=== PATIENT | male | born 1980 | race African-American/Black ===

== ENCOUNTER → 2019-09-03 | Emergency (ER) | payer OTHER ==
[~2019-09-03] VITALS: Ht 180.3 cm; Wt 130.6 kg
[~2019-09-03] MED LIST: ACETAMINOPHEN-1 EAC1 ORAL; IBU800 MG PO
[2019-09-03 12:02] VITALS: BP 164/100
--- NOTE | 2019-09-03 13:00 | NUR ---
ED Nurse Note: Pt returned from x-ray.
--- NOTE | 2019-09-03 13:43 | Emergency Room Report ---
History of Present Illness General Chief Complaint: Lower Extremity Injury Source: Patient Present Illness HPI 39-year-old male with history of left hip replacement, here complaining of right knee pain and right ankle pain after falling off a porch today. Patient reports that he landed on her right knee. Rating the pain 10 out of 10 without radiation. Denying tingling numbness. Has not taken medication for symptom relief. Patient is tender to palpation right proximal fibula and right distal tibia. Denies all other injuries, denies head injury, loss of consciousness, dizziness, chest pain, shortness of breath, palpitation, and other associated symptoms. Allergies: Coded Allergies: No Known Allergies (Unverified , 09/03/19) Patient History Past Medical History: see triage record Past Surgical History: unable to obtain Pertinent Family History: none Immunizations: UTD Reviewed Nursing Documentation: PMH: Agreed; PSxH: Agreed Review of Systems All Other Systems: negative except mentioned in HPI Physical Exam Vital Signs Date Time Temp Pulse Resp B/P (MAP) Pulse Ox O2 Delivery O2 Flow Rate FiO2 09/03/19 12:02 98.2 83 16 164/100 (121) 96 Room Air Sp02 EP Interpretation: reviewed, normal General Appearance: no apparent distress, alert, GCS 15, non-toxic Head: normocephalic, atraumatic Eyes: bilateral eye normal inspection, bilateral eye PERRL ENT: hearing grossly normal, normal pharynx, no angioedema, normal voice Neck: full range of motion, supple, supple/symm/no masses Respiratory: chest non-tender, lungs clear, normal breath sounds, no rhonchi, no respiratory distress, no retraction, speaking full sentences Cardiovascular #1: regular rate, rhythm, no edema, no gallop, no murmur Cardiovascular #2: 2+ dorsalis pedis (R), 2+ dorsalis pedis (L) Gastrointestinal: normal bowel sounds, non tender, soft, non-distended, no guarding, no rebound Musculoskeletal: back normal, no calf tenderness, pelvis stable, tender - Right proximal fibula, right distal tibia Neurologic: alert, oriented x3, responsive, motor strength/tone normal, sensory intact, speech normal Psychiatric: judgement/insight normal, memory normal, mood/affect normal, no suicidal/homicidal ideation Skin: no rash Lymphatic: no adenopathy Procedures Splinting Splinting : Consent: Verbal Location: right knee to ankle Splint: posterior long Pre-Proc Neuro Vasc Exam: normal Post-Proc Neuro Vasc Exam: normal Patient Tolerated: Well Complications: None Progress walker was provided as pt cant walk with crutches due to left hip replacement hx Medical Decision Making PA Attestation All my diagnosis and treatment plans were reviewed ad discussed with my supervising physician Dr. Guillen Diagnostic Impression: Primary Impression: Fracture of right proximal fibula Additional Impression: Ankle fracture, right ER Course 39-year-old male with history of left hip replacement, here complaining of right knee pain and right ankle pain after falling off a porch today. Patient reports that he landed on her right knee. Rating the pain 10 out of 10 without radiation. Denying tingling numbness. Has not taken medication for symptom relief. Patient is tender to palpation right proximal fibula and right distal tibia. Denies all other injuries, denies head injury, loss of consciousness, dizziness, chest pain, shortness of breath, palpitation, and other associated symptoms. Ddx considered but are not limited to: Knee sprain, strain, fracture, contusion , meniscus tear injury, ankle sprain versus fracture versus strain Vital signs: are WNL, pt. is afebrile H&PE are most consistent with: Fracture of right proximal fibula, ankle fracture right ORDERS: Knee x-ray, ankle x-ray, Tylenol 3, ibuprofen ER intervention: Posterior long-leg splint, walker was provided patient with no walker or crutches due to having history of left hip replacement and cannot apply pressure to the left side. DISCHARGE: At this time pt. is stable for d/c to home. Will provide printed patient care instructions, and any necessary prescriptions. Care plan and follow up instructions have been discussed with the patient prior to discharge. At this time patient does not have calf tenderness however I educated him on return to the emergency room if tightness in the affected side, or chest pain, or swelling in the leg. Also follow-up with hearing instrument specialist this was possible. Patient is obese and immobile and high risk for deep vein thrombosis. However at this time it is not indicated to have ultrasound done as the fracture just occurred this morning and the fracture parts are being placed in a splint. Other X-Ray Diagnostic Results Other X-Ray Diagnostic Results #1: X-Ray ordered: Right knee # of Views/Limited Vs Complete: 3 View Indication: Pain EP Interpretation: Yes PA Xray: Interpretation reviewed, by supervising MD, and agrees with findings. Interpretation: no dislocation, other - Right proximal fibular fracture Impression: Other - Right proximal fibular fracture Electronically Signed by: Deon Rai PA-C Other X-Ray Diagnostic Results #2: X-Ray ordered: Right ankle # of Views/Limited Vs Complete: 3 View Indication: Pain EP Interpretation: Yes PA Xray: Interpretation reviewed, by supervising MD, and agrees with findings. Interpretation: no dislocation, other - Right distal tibial fracture Impression: Other - Right distal tibial fracture Electronically Signed by: Deon Rai PA-C Last Vital Signs Date Time Temp Pulse Resp B/P (MAP) Pulse Ox O2 Delivery O2 Flow Rate FiO2 09/03/19 12:02 98.2 83 16 164/100 (121) 96 Room Air Disposition: HOME, SELF-CARE Condition: Stable Scripts Acetaminophen With Codeine (T#3) (TYLENOL #3 TAB*) Y Tab 1 TAB ORAL Q8H PRN for For Pain, #10 TAB Prov: Deon Bob 09/03/19 Ibuprofen (Ibu) 800 Mg Tablet 800 MG PO TID, #30 TAB Prov: Deon Bob 09/03/19 Referrals: [facility],REFERRING (PCP) Patient Instructions: Ankle Fracture, [id number], Fibular Fracture With Rehab -SportsMed Additional Instructions: Follow-up with hearing instrument specialist keep splint on, elevate affected area avoid strenuous physical activity and apply pressure to the fracture area. If worsening symptoms return to the emergency room Deon Bob Sep 03, 2019 13:43
--- NOTE | 2019-09-03 15:37 | NUR ---
ED Nurse Note: Waiting for central suppy to restock splint.
--- NOTE | 2019-09-03 15:39 | Diagnostic Imaging Report ---
Indication: Pain, trauma, status post slip and fall Technique: 3 views of the right ankle Comparison: none Findings: There is widening of the medial ankle mortise, indicating lateral subluxation of the talus. Addition, there is what appears to be a small osteochondral or avulsion fracture of the distal medial tibia. No fibular or other fracture demonstrated. Impression: Evidence of medial ligamentous injury with associated avulsion or osteochondral fracture This agrees with the preliminary interpretation reported by the emergency room physician in the electronic medical record
--- NOTE | 2019-09-03 15:40 | Diagnostic Imaging Report ---
Indication: Trauma, pain, status post slip and fall Technique: 3 views of the right knee Comparison: None Findings: There is a nondisplaced oblique fracture of the proximal fibula. No other acute fractures. No dislocations. There is degenerative narrowing of the lateral joint compartment and tricompartmental osteophytes. There is probably also some narrowing of the patellofemoral joint compartment and a small suprapatellar effusion Impression: Positive for proximal fibular fracture This agrees with the preliminary interpretation reported by the emergency room physician in the electronic medical record
== END | disposition home or self-care (01) ==
LOC: EMR 12:40
DX: S82.831A Other fracture of upper and lower end of right fibula, initial encounter for closed fracture (principal); S82.301A Unspecified fracture of lower end of right tibia, initial encounter for closed fracture; Z96.642 Presence of left artificial hip joint; W17.89XA Other fall from one level to another, initial encounter; Y92.007 Garden or yard of unspecified non-institutional (private) residence as the place of occurrence of the external cause
CPT/HCPCS: 29505; 73562; 73610; Z7502; 99284